=== PATIENT | female | born 1955 | race Caucasian/White ===

== ENCOUNTER 2016-11-25 17:23 | Emergency (ER) | payer OTHER ==
--- NOTE | 2016-11-25 20:11 | ERRECORD ---
[facility] EMERGENCY RECORD HPI SORE THROAT (18:17 DHAM) CHIEF COMPLAINT: Patient presents for evaluation of sore throat. HISTORIAN: History provided by patient, Pt c/o 2 months of bilat ear pain, headache for 2 months, choking on her food for 2-3 weeks. 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 LOCATION: throat pain is diffuse when she swallows. QUALITY: Unable to describe the quality of the pain. SEVERITY: Current severity of pain rated as 5/10. TIME COURSE: Gradual onset of symptoms, 3, weeks ago, There has been no change in the patient's symptoms over time, are intermittent. ASSOCIATED WITH: No associated fever, No associated chills, Associated with cough, non-productive, intermittent, Associated with dysphagia, for 1 month, intermittent, Associated with headache, for 3 months, No associated inability to open mouth, No associated inability to take oral fluids, No associated nasal discharge, No associated shortness of breath, No associated upper respiratory infection, No associated vomiting. EXACERBATED BY: Patient's condition exacerbated by food. RELIEVED BY: Patient's condition relieved by nothing. ROS (18:23 DHAM) CONSTITUTIONAL: Historian denies chills, denies fever, denies lethargy, denies night sweats. EYES: Historian denies eye pain, denies eye redness, denies eye discharge. ENT: Historian reports dysphagia, reports otalgia, denies otorrhea, denies rhinorrhea, denies sinus pain, reports sore throat, denies stridor. hoarse voice for "a long time when I talk a lot". CARDIOVASCULAR: Historian denies chest pain, denies diaphoresis, denies edema, denies syncope, denies palpitations. RESPIRATORY: Historian reports cough, denies shortness of breath, denies sputum. GI: Historian denies abdominal pain, denies constipation, denies diarrhea, denies nausea, denies vomiting. GENITOURINARY FEMALE: Historian denies dysuria, denies urgency. MUSCULOSKELETAL: Historian denies arthralgias, denies back pain, denies fall, denies injury. SKIN: Historian denies pruritis, denies rash, denies skin changes. NEUROLOGIC: Historian denies confusion, denies dizziness, denies dysphasia, denies focal weakness, reports headache, denies mental status changes, denies paresthesias. HEMO/LYMPHATIC: Historian denies abnormal blood clotting, denies easy bruising. ALLERGIC/IMMUNOLOGIC: Historian denies frequent infections, denies hives. &a-1R&a+25V*p+0X*v4632K*c202B*c15G*c2P*p-0X&a-25V&a+1R Name: Radha Navarrete : 1955 F61 MedRec: [id number] AcctNum: [id number] Prepared: Sat Nov 26, 2016 03:03 by Interface Page 1 of 4 pMD [facility] EMERGENCY RECORD PSYCHIATRIC: bipolar d/o. PAST MEDICAL HISTORY MEDICAL HISTORY: Notes: BORDER LINE DIABETIC, Past medical history includes history of hypertension, which has been treated, Flu vaccine up to date, Tetanus immunization up to date, Pneumococcal vaccine up to date, Past medical history includes pulmonary disease, chronic obstructive pulmonary disease, 19-16. (MonNov 25, 2016 17:37 SCHI) FEMALE SURGICAL HISTORY: VERIFIED 02-22-16, Surgical history of tubal ligation, Surgical history of oophorectomy, Notes: 1 ovary + 1 fallopian tube removed +surgery to have children, Surgical history of tubal ligation.16. (MonNov 25, 2016 17:37 SCHI) PSYCHIATRIC HISTORY: Notes: BIPOLAR, Psychiatric history includes, bipolar disorder. -19-16. (MonNov 25, 2016 17:37 SCHI) SOCIAL HISTORY: Social History includes [id number] 02-22-16, Patient denies alcohol use, Patient denies drug use, Patient currently uses tobacco, smokes cigarettes, daily, Patient has smoked for 30 years, Patient smokes 1 pack per day, Lives at home, with family, Patient drinks socially, once a month, Patient denies drug use, Patient currently uses tobacco, smokes cigarettes, Patient smokes 1.5 packs per day, Patient drinks socially, Alcohol history notes: PT STATES SOCIALLY - EVERY ONCE AND AWHILE - BUT HAS HISTORY OF ETOH, Patient denies drug use, Patient currently uses tobacco, smokes cigarettes. (MonNov 25, 2016 17:37 SCHI) FAMILY HISTORY: Paternal history of cardiac disease:, coronary artery disease. (MonNov 25, 2016 17:37 SCHI) NOTES: HAVE EXAMINED AND AGREE WITH PMHX, SOCIAL HX AND PAST FAMILY HX as noted in nursing docuentation. (18:23 [facility]) KNOWN ALLERGIES Geodon: - Entered brand: Geodon Cap -- Entered brand: Geodon Cap Haldol CURRENT MEDICATIONS (17:38 SCHI) gabapentin: CAPSULE : Strength - 300 mg : ORAL Patient Dose: 1 cap(s) Oral 3 times a day. Elavil: TABLET : Strength - 100 mg : ORAL Patient Dose: once a day (at bedtime). traZODone: TABLET : Strength - 300 mg : ORAL Patient Dose: once a day (at bedtime). SEROquel: TABLET : Strength - 400 mg : ORAL Patient Dose: once a day (at bedtime). KlonoPIN: TABLET : Strength - 1 mg : ORAL &a-1R&a+25V*p+0X*v3086J*c202B*c15G*c2P*p-0X&a-25V&a+1R Name: Radha Navarrete : 1955 F61 MedRec: [id number] AcctNum: [id number] Prepared: Sat Nov 26, 2016 03:03 by Interface Page 2 of 4 pMD [facility] EMERGENCY RECORD Patient Dose: once a day (at bedtime). propranolol: TABLET : Strength - 10 mg : ORAL Patient Dose: Unknown. NOT SURE OF DOSAGE . melatonin: TABLET : Strength - 10 mg : ORAL Patient Dose: once a day. Ditropan: TABLET : Strength - 5 mg : ORAL Patient Dose: 10 mg once a day. atorvastatin: TABLET : Strength - 20 mg : ORAL Patient Dose: once a day. lisinopril: TABLET : Strength - 10 mg : ORAL Patient Dose: once a day. VITAL SIGNS VITAL SIGNS: BP: 128/59, Pulse: 104, Resp: 20, Temp: 99 (Tympanic), O2 sat: 95 on Room Air, Time: 11/25/2016 17:34. (17:34 SCHI) BP: 134/76, Pulse: 101, Resp: 20, Temp: 98.1, Pain: 7, O2 sat: 96 on RA, Time: 11/25/2016 19:53. (19:53 EROG) PHYSICAL EXAM (Sat Nov 26, 2016 03:00 DHAM) CONSTITUTIONAL: Vital signs reviewed, Patient afebrile, Pulse normal, Blood pressure normal, Respiratory rate normal, Patient appears non toxic, Patient appears pain free, Patient alert and oriented to person, place and time. HEAD: Head exam normal, Head exam included findings of head atraumatic, normocephalic. EYES: Eye exam included findings of eyelids normal to inspection, Pupils equally round and reactive to light, Extraocular muscles intact, Conjunctiva normal, Sclera normal. ENT: Ear exam normal, Nose exam normal, Pharynx exam normal, Uvula exam normal, Tonsil exam normal, Mouth exam normal, mucous membranes moist. voice is a bit hoarse. NECK: Neck exam normal, Neck exam included findings of normal range of motion, Trachea midline, no meningeal signs, no jugular venous distention, no cervical adenopathy. RESPIRATORY CHEST: Respiratory and chest exam normal, Respiratory exam included findings of no respiratory distress, Breath sounds clear, No wheezing, No rales, Breath sounds not diminished. CARDIOVASCULAR: Cardiovascular exam included findings of heart rate regular rate and rhythm, Heart sounds normal, normal S1, normal S2, no murmurs, Pedal pulses normal. ABDOMEN FEMALE: Abdominal exam normal, Abdominal exam included findings of abdomen nontender, Bowel sounds normal, Liver normal, Spleen normal, no distension, no mass, no peritoneal signs, no rigidity, no guarding, no rebound. &a-1R&a+25V*p+0X*h3537H*c202B*c15G*c2P*p-0X&a-25V&a+1R Name: Radha Navarrete : 1955 F61 MedRec: [id number] AcctNum: [id number] Prepared: Sat Nov 26, 2016 03:03 by Interface Page 3 of 4 pMD [facility] EMERGENCY RECORD BACK: Back exam normal, Back exam included findings of normal inspection, range of motion normal, no tenderness. UPPER EXTREMITY: Upper extremity exam normal, Upper extremity exam included findings of inspection normal, Range of motion normal, Motor strength normal, Sensation intact. LOWER EXTREMITY: Lower extremity exam normal, Lower extremity exam included findings of inspection normal, Range of motion normal, Motor strength normal, Sensation intact, Pedal pulse normal. NEURO: Elkin coma scale 15, Neuro exam findings include patient oriented to person, place and time, Speech normal, Gait normal, Cranial nerves intact, Deep tendon reflexes normal, no focal motor deficits, no focal sensory deficits, no cerebellar deficits. SKIN: Skin exam normal, Skin exam included findings of skin warm, dry, and normal in color, no rash. LYMPHATIC: Lymphatic exam normal, Lymphatic exam included findings of cervical nodes normal. PSYCHIATRIC: Psychiatric exam included findings of patient oriented to person place and time, Normal affect, Judgment normal, Insight normal, Remote memory normal, Recent memory normal, Concentration normal, hx seems variable and somewhat difficult to follow. PROBLEM LIST No recorded problems DIAGNOSIS (19:43 [facility]) FINAL: PRIMARY: ACUTE PHARYNGITIS UNSPECIFIED. PRESCRIPTION No recorded prescriptions DISPOSITION PATIENT: Disposition Type: Discharge, Disposition: *Discharge Home. (19:43 DHAM) Patient left the department. (20:02 EROG) Christiansen: HAKEEM=MD Hiral, Elmer EROG=VIVIANA Mayfield, Santino RODRÍGUEZ=VIVIANA Garcia, nayana &a-1R&a+25V*p+0X*f8852E*c202B*c15G*c2P*p-0X&a-25V&a+1R Name: Radha Navarrete : 1955 F61 MedRec: [id number] AcctNum: [id number] Prepared: Albert Nov 26, 2016 03:03 by Interface Page 4 of 4 pMD MTDD
--- NOTE | 2016-11-25 20:19 | PICIS ---
[facility] EMERGENCY RECORD TRIAGE (MonNov 25, 2016 17:37 SCHI) PATIENT: NAME: Radha Navarrete, AGE: 61, GENDER: female, : Mon1955, TIME OF GREET: MonNov 25, 2016 17:25, PREFERRED LANGUAGE: Montenegrin, RACE: WHITE, ETHNICITY: Not or , FALL RISK: NO, ECODE BILLING MAP: [facility] ER, SSN: [id number], Zip Code: [address], KG WEIGHT: 97.52, PHONE: , , , PERSON ID: [id number], PCP: MD Rose Grover. (MonNov 25, 2016 17:37 SCHI) TRIAGE NOTES: HEADACHE,EARS HURTING AND SOME TROUBLE SWOLLOWING MEATS FOR SEVERAL WEEKS NOW, CALLED ASK A NURSE AND WAS TOLD TO COME TO ER TODAY. (MonNov 25, 2016 17:37 SCHI) COMPLAINT: THROAT PROBLEM/TROUBLE SWALLOWING. (MonNov 25, 2016 17:37 SCHI) ADMISSION: URGENCY: 4 Non Urgent, ADMISSION SOURCE: Home, TRANSPORT: Walk-in, BED: ED -04. (MonNov 25, 2016 17:37 SCHI) ASSESSMENT: Assessment: ALERT AND ORIENTED X 4, SKIN WARM AND DRY RESP EVEN AND UNLABORED,, Symptoms began SEVERAL MONTHS. (MonNov 25, 2016 17:37 SCHI) IMMUNIZATIONS: Flu vaccine up to date. (MonNov 25, 2016 17:37 SCHI) TRIAGE SCREENING: Patient denies suicidal ideation, Patient denies presence of domestic violence. (MonNov 25, 2016 17:37 SCHI) PROVIDERS: TRIAGE NURSE: Tonie Garcia RN. (MonNov 25, 2016 17:37 SCHI) VITAL SIGNS: BP 128/59, Pulse 104, Resp 20, Temp 99, (Tympanic), O2 Sat 95, on Room Air, Time 11/25/2016 17:34. (17:34 SCHI) PREVIOUS VISIT ALLERGIES: Geodon, Haldol. (MonNov 25, 2016 17:37 SCHI) KNOWN ALLERGIES Geodon: - Entered brand: Geodon Cap -- Entered brand: Geodon Cap Haldol CURRENT MEDICATIONS (17:38 SCHI) gabapentin: CAPSULE : Strength - 300 mg : ORAL Patient Dose: 1 cap(s) Oral 3 times a day. Elavil: TABLET : Strength - 100 mg : ORAL Patient Dose: once a day (at bedtime). traZODone: TABLET : Strength - 300 mg : ORAL Patient Dose: once a day (at bedtime). SEROquel: TABLET : Strength - 400 mg : ORAL Patient Dose: once a day (at bedtime). KlonoPIN: TABLET : Strength - 1 mg : ORAL Patient Dose: once a day (at bedtime). &a-1R&a+25V*p+0X*p1168L*c202B*c15G*c2P*p-0X&a-25V&a+1R Name: Radha Navarrete : 1955 F61 MedRec: [id number] AcctNum: [id number] Prepared: Sat Nov 26, 2016 03:10 by Interface Page 1 of 6 pMD [facility] EMERGENCY RECORD propranolol: TABLET : Strength - 10 mg : ORAL Patient Dose: Unknown. NOT SURE OF DOSAGE . melatonin: TABLET : Strength - 10 mg : ORAL Patient Dose: once a day. Ditropan: TABLET : Strength - 5 mg : ORAL Patient Dose: 10 mg once a day. atorvastatin: TABLET : Strength - 20 mg : ORAL Patient Dose: once a day. lisinopril: TABLET : Strength - 10 mg : ORAL Patient Dose: once a day. VITAL SIGNS VITAL SIGNS: BP: 128/59, Pulse: 104, Resp: 20, Temp: 99 (Tympanic), O2 sat: 95 on Room Air, Time: 11/25/2016 17:34. (17:34 SCHI) BP: 134/76, Pulse: 101, Resp: 20, Temp: 98.1, Pain: 7, O2 sat: 96 on RA, Time: 11/25/2016 19:53. (19:53 EROG) NURSING PROCEDURE: DISCHARGE NOTE (19:53 EROG) DISCHARGE: Patient discharged to home, ambulating without assistance, driving self, unaccompanied, Summary of Care printed/ provided, Patient requested and was provided an electronic copy of Discharge Instructions, Transition record given to patient, Discharge instructions given to patient, Simple or moderate discharge teaching performed, by Jayant LANIER RN, Above person(s) verbalized understanding of discharge instructions and follow-up care. BELONGINGS: Belongings remain with patient, Valuables remain with patient, Notes: PATIENT REMAINS STABLE. INSTRUCTED TO CALL DR. ROSE ON MONDAY MORNING FOR FOLLOW UP. VITAL SIGNS: BP: 134, / 76, Pulse: 101, Resp: 20, Temp: 98.1, Pain: 7, O2 sat: 96, on: RA, Time: 1949. ORDER DETAILS Order Name: Strep Group A Screen, Status: Active, Time: 18:17 11/25/2016, User: HAKEEM, - Ordered for: MD Blackman Darren, - Entered by: MD Blackman Darren - MonNov 25, 2016 18:17, - Quantity: 1. HPI SORE THROAT (18:17 [facility]) CHIEF COMPLAINT: Patient presents for evaluation of sore throat. HISTORIAN: History provided by patient, Pt c/o 2 months of bilat ear pain, headache for 2 months, choking on her food for 2-3 weeks. she has a chronically hoarse voice &a-1R&a+25V*p+0X*w3043I*c202B*c15G*c2P*p-0X&a-25V&a+1R Name: Radha Navarrete : 1955 F61 MedRec: [id number] AcctNum: [id number] Prepared: Sat Nov 26, 2016 03:10 by Interface Page 2 of 6 pMD [facility] EMERGENCY RECORD and is a termite control service representative smoker. LOCATION: throat pain is diffuse when she swallows. QUALITY: Unable to describe the quality of the pain. SEVERITY: Current severity of pain rated as 5/10. TIME COURSE: Gradual onset of symptoms, 3, weeks ago, There has been no change in the patient's symptoms over time, are intermittent. ASSOCIATED WITH: No associated fever, No associated chills, Associated with cough, non-productive, intermittent, Associated with dysphagia, for 1 month, intermittent, Associated with headache, for 3 months, No associated inability to open mouth, No associated inability to take oral fluids, No associated nasal discharge, No associated shortness of breath, No associated upper respiratory infection, No associated vomiting. EXACERBATED BY: Patient's condition exacerbated by food. RELIEVED BY: Patient's condition relieved by nothing. ROS (18:23 DHAM) CONSTITUTIONAL: Historian denies chills, denies fever, denies lethargy, denies night sweats. EYES: Historian denies eye pain, denies eye redness, denies eye discharge. ENT: Historian reports dysphagia, reports otalgia, denies otorrhea, denies rhinorrhea, denies sinus pain, reports sore throat, denies stridor. hoarse voice for "a long time when I talk a lot". CARDIOVASCULAR: Historian denies chest pain, denies diaphoresis, denies edema, denies syncope, denies palpitations. RESPIRATORY: Historian reports cough, denies shortness of breath, denies sputum. GI: Historian denies abdominal pain, denies constipation, denies diarrhea, denies nausea, denies vomiting. GENITOURINARY FEMALE: Historian denies dysuria, denies urgency. MUSCULOSKELETAL: Historian denies arthralgias, denies back pain, denies fall, denies injury. SKIN: Historian denies pruritis, denies rash, denies skin changes. NEUROLOGIC: Historian denies confusion, denies dizziness, denies dysphasia, denies focal weakness, reports headache, denies mental status changes, denies paresthesias. HEMO/LYMPHATIC: Historian denies abnormal blood clotting, denies easy bruising. ALLERGIC/IMMUNOLOGIC: Historian denies frequent infections, denies hives. PSYCHIATRIC: bipolar d/o. PAST MEDICAL HISTORY MEDICAL HISTORY: Notes: BORDER LINE DIABETIC, Past medical history includes history of hypertension, which has been treated, Flu &a-1R&a+25V*p+0X*z2087J*c202B*c15G*c2P*p-0X&a-25V&a+1R Name: Radha Navarrete : 1955 F61 MedRec: [id number] AcctNum: [id number] Prepared: Sat Nov 26, 2016 03:10 by Interface Page 3 of 6 pMD [facility] EMERGENCY RECORD vaccine up to date, Tetanus immunization up to date, Pneumococcal vaccine up to date, Past medical history includes pulmonary disease, chronic obstructive pulmonary disease, 2-19-16. (MonNov 25, 2016 17:37 SCHI) FEMALE SURGICAL HISTORY: VERIFIED 02-22-16, Surgical history of tubal ligation, Surgical history of oophorectomy, Notes: 1 ovary + 1 fallopian tube removed +surgery to have children, Surgical history of tubal ligation.12-18-15. (MonNov 25, 2016 17:37 SCHI) PSYCHIATRIC HISTORY: Notes: BIPOLAR, Psychiatric history includes, bipolar disorder. 12-18-15. (MonNov 25, 2016 17:37 SCHI) SOCIAL HISTORY: Social History includes NYAVV4OG 02-22-16, Patient denies alcohol use, Patient denies drug use, Patient currently uses tobacco, smokes cigarettes, daily, Patient has smoked for 30 years, Patient smokes 1 pack per day, Lives at home, with family, Patient drinks socially, once a month, Patient denies drug use, Patient currently uses tobacco, smokes cigarettes, Patient smokes 1.5 packs per day, Patient drinks socially, Alcohol history notes: PT STATES SOCIALLY - EVERY ONCE AND AWHILE - BUT HAS HISTORY OF ETOH, Patient denies drug use, Patient currently uses tobacco, smokes cigarettes. (MonNov 25, 2016 17:37 SCHI) FAMILY HISTORY: Paternal history of cardiac disease:, coronary artery disease. (MonNov 25, 2016 17:37 SCHI) NOTES: HAVE EXAMINED AND AGREE WITH PMHX, SOCIAL HX AND PAST FAMILY HX as noted in nursing docuentation. (18:23 DHAM) PHYSICAL EXAM ([facility] Nov 26, 2016 03:00 DHAM) CONSTITUTIONAL: Vital signs reviewed, Patient afebrile, Pulse normal, Blood pressure normal, Respiratory rate normal, Patient appears non toxic, Patient appears pain free, Patient alert and oriented to person, place and time. HEAD: Head exam normal, Head exam included findings of head atraumatic, normocephalic. EYES: Eye exam included findings of eyelids normal to inspection, Pupils equally round and reactive to light, Extraocular muscles intact, Conjunctiva normal, Sclera normal. ENT: Ear exam normal, Nose exam normal, Pharynx exam normal, Uvula exam normal, Tonsil exam normal, Mouth exam normal, mucous membranes moist. voice is a bit hoarse. NECK: Neck exam normal, Neck exam included findings of normal range of motion, Trachea midline, no meningeal signs, no jugular venous distention, no cervical adenopathy. RESPIRATORY CHEST: Respiratory and chest exam normal, Respiratory exam included findings of no respiratory distress, Breath sounds clear, No wheezing, No rales, Breath sounds not diminished. CARDIOVASCULAR: Cardiovascular exam included findings of heart rate regular rate and rhythm, Heart sounds normal, normal S1, normal S2, no murmurs, Pedal pulses normal. ABDOMEN FEMALE: Abdominal exam normal, Abdominal exam included findings of abdomen nontender, Bowel sounds normal, Liver normal, &a-1R&a+25V*p+0X*f2044O*c202B*c15G*c2P*p-0X&a-25V&a+1R Name: Radha Navarrete : 1955 F61 MedRec: [id number] AcctNum: [id number] Prepared: Sat Nov 26, 2016 03:10 by Interface Page 4 of 6 pMD [facility] EMERGENCY RECORD Spleen normal, no distension, no mass, no peritoneal signs, no rigidity, no guarding, no rebound. BACK: Back exam normal, Back exam included findings of normal inspection, range of motion normal, no tenderness. UPPER EXTREMITY: Upper extremity exam normal, Upper extremity exam included findings of inspection normal, Range of motion normal, Motor strength normal, Sensation intact. LOWER EXTREMITY: Lower extremity exam normal, Lower extremity exam included findings of inspection normal, Range of motion normal, Motor strength normal, Sensation intact, Pedal pulse normal. NEURO: Elkin coma scale 15, Neuro exam findings include patient oriented to person, place and time, Speech normal, Gait normal, Cranial nerves intact, Deep tendon reflexes normal, no focal motor deficits, no focal sensory deficits, no cerebellar deficits. SKIN: Skin exam normal, Skin exam included findings of skin warm, dry, and normal in color, no rash. LYMPHATIC: Lymphatic exam normal, Lymphatic exam included findings of cervical nodes normal. PSYCHIATRIC: Psychiatric exam included findings of patient oriented to person place and time, Normal affect, Judgment normal, Insight normal, Remote memory normal, Recent memory normal, Concentration normal, hx seems variable and somewhat difficult to follow. EVENTS TRANSFER: Triage to Emergency Main ED -04. (MonNov 25, 2016 17:37 SCHI) Removed from Emergency Main ED -04. (20:02 EROG) O2SAT INTERPRETATION (18:25 DHAM) O2SAT: Single pulse oximetry, Oxygen saturation 95%, on room air, Oxygen saturation interpretation: Normal, No intervention required. PROBLEM LIST No recorded problems DIAGNOSIS (19:43 DHAM) FINAL: PRIMARY: ACUTE PHARYNGITIS UNSPECIFIED. DISPOSITION PATIENT: Disposition Type: Discharge, Disposition: *Discharge Home. (19:43 DHAM) Patient left the department. (20:02 EROG) INSTRUCTION (19:44 DHAM) DISCHARGE: PHARYNGITIS, VIRAL. FOLLOWUP: MD Saniya, Sil[facility], [facility], [address] [place] [address], . SPECIAL: I would encourage you to see your pcp to consider ENT referral for your sore throat and hoarseness. &a-1R&a+25V*p+0X*t0579O*c202B*c15G*c2P*p-0X&a-25V&a+1R Name: Radha Navarrete : 1955 F61 MedRec: [id number] AcctNum: [id number] Prepared: Sat Nov 26, 2016 03:10 by Interface Page 5 of 6 pMD [facility] EMERGENCY RECORD Please return for any worsening or other concerns. PRESCRIPTION No recorded prescriptions IMAGING (20:25 EROG) *DISCHARGE INSTRUCTIONS RECEIPT: Image captured from scanner. *SUPPLY CHARGE SHEET: Image captured from scanner. ADMIN DIGITAL SIGNATURE: VIVIANA Lanier Eugene. (20:29 EROG) MD Blackman Darren. (Sat Nov 26, 2016 03:01 [facility]) RESULTS (19:42 [facility]) MICROBIOLOGY: Strep Group A Screen: [id number] Collection DT: MonNov 25, 2016 18:37, See comment below , @ ER ROOM#: ED-04 Source: Throat Spec Desc: PENDING, Strep A Negative CDC recommends , confirmation by , culture on all , negative , Strep negative line 1 Group A , Streptococcus rapid , screens. Please , order , Strep negative line 2 a throat culture if , clinically , indicated. , Rapid Strep Screen:Throat Negative . Christiansen: HAKEEM=MD Blackman Darren EROG=VIVIANA Lanier Eugene SCHI=VIVIANA Garcia, inda &a-1R&a+25V*p+0X*p3215G*c202B*c15G*c2P*p-0X&a-25V&a+1R Name: Radha Navarrete : 1955 F61 MedRec: [id number] AcctNum: [id number] Prepared: Albert Nov 26, 2016 03:10 by Interface Page 6 of 6 pMD MTDD
== END 2016-11-25 19:53 | disposition home or self-care (01) ==
LOC: MADERS 17:23
DX: J02.9 Acute pharyngitis, unspecified (principal); J44.9 Chronic obstructive pulmonary disease, unspecified; I10 Essential (primary) hypertension; F17.210 Nicotine dependence, cigarettes, uncomplicated; F31.9 Bipolar disorder, unspecified; Z79.899 Other long term (current) drug therapy
CPT/HCPCS: 87430; 99284

== ENCOUNTER 2016-11-29 11:34 | Outpatient (CLI) | payer OTHER ==
--- NOTE | 2016-11-29 15:06 | RAD ---
TWO VIEWS CHEST INDICATION: COPD. COMPARISON: 02/22/2016. FINDINGS: There is a linear density along the lateral aspect of the mid inferior right chest, likely a Mach li ne, as there are pulmonary parenchymal markings traversing lateral to this finding. There is no con solidation. No evidence of significant effusion. Elevation of the left hemidiaphragm with associat ed air fluid level within the stomach present. A component of diaphragmatic hernia not entirely exc luded. Cardiac silhouette is stable. IMPRESSION: Mach line of the right chest. Stable elevation of the left hemidiaphragm with underlying air fluid level. POS: [facility]
== END 2016-11-29 11:35 | disposition home or self-care (01) ==
LOC: MADRAD 11:34
PROVIDERS: ATTEND Family Medicine
DX: J44.9 Chronic obstructive pulmonary disease, unspecified (principal)
CPT/HCPCS: 71020

== ENCOUNTER 2017-05-11 08:24 | Outpatient (CLI) | payer OTHER ==
[2017-05-11 09:53] LABS: #Basophils 0.1 thou/uL (0.0-0.2); #Eosinphils 0.7 thou/uL (0.0-0.7); #Lymphocytes 3.1 thou/uL (1.20-3.40); #Monocytes 0.5 thou/uL (0.11-0.59); #Neutrophils 5.5 thou/uL (1.40-6.50); %Basophils 1.4 % (0.0-1.0); %Eosinophils 7.3 % (0.0-10.0); %Monocytes 5.2 % (0.0-10.0); %Neutrophils 55.2 % (42.0-75.0); Hemoglobin 14.3 g/dL (12.0-16.0); Mean Corpuscular Hemoglobin 32.7 pg (27.0-31.0); Mean Corpuscular Volume 99.1 fl (81.0-99.0); Mean Platelet Volume 5.9 fL (7.4-10.4); Platelet Count 272 thou/uL (130-400); RBC Distribution Width 12.1 % (11.5-14.5); Red Blood Cell (RBC) Count 4.38 mill/uL (4.20-5.40); White Blood Cell (WBC) Count 9.9 thou/uL (4.8-10.8)
[2017-05-11 10:08] LABS: ALT (SGPT) 21 U/L (8-55); AST (SGOT) 16 U/L (5-34); Alkaline Phosphatase 111 U/L (40-150); Anion Gap 13 mmol/L (10-20); BUN (Urea Nitrogen) 15 mg/dL (9.8-20.1); Bilirubin, Total Less than 0.3 mg/dL (0.2-1.2); Calc. Creatinine Clearance 0 mL/min (70-130); Calcium 9.8 mg/dL (7.8-10.44); Carbon Dioxide 27 mmol/L (22-29); Cardiac Risk 3.8 (Less than 4.5); Chloride 100 mmol/L (98-107); Cholesterol 180 mg/dl (< 200 Desired); Estimated GFR-MDRD 67; Globulin 3.4 g/dL (2.4-3.5); Glucose 106 mg/dL (70-105); HDL Cholesterol 48 mg/dL (>60 Neg Risk); LDL Cholesterol, Calculated 108 mg/dL; Potassium 4.4 mmol/L (3.5-5.1); Protein, Total 7.4 g/dL (6.0-8.3); Sodium 136 mmol/L (136-145); Triglycerides 118 mg/dL (Less than 150)
[2017-05-11 10:09] LABS: Hemoglobin A1c 5.9 % (4.0-6.0)
[2017-05-11 10:54] LABS: Bilirubin Negative (Negative); Blood, Urine Negative (Negative); Clarity Clear (Clear); Glucose, Urine (Dipstick) Negative (Negative); Leukocyte Negative (Negative); Nitrite Negative (Negative); Protein, Urine (Dipstick) Negative (Neg-Trace); Urobilinogen 0.2 mg/dL (0.2-1.0)
[2017-05-11 10:56] LABS: Bacteria/HPF Rare-Few HPF (None Seen); RBC/HPF 0-3 HPF (0-3); WBC/HPF 0-3 HPF (0-3)
[2017-05-11 18:31] LABS: Creatinine, Urine 55.05 mg/dL (47-110); Microalbumin Urine Less than 1.0 mg/dL (0.5-50.0); Microalbumin/Creat Ratio 18.2 mg/g (Less than 30)
== END 2017-05-11 08:25 | disposition home or self-care (01) ==
LOC: MADLABBHPM 08:24
PROVIDERS: ATTEND Family Medicine
DX: E78.5 Hyperlipidemia, unspecified (principal); E11.9 Type 2 diabetes mellitus without complications; F41.1 Generalized anxiety disorder
CPT/HCPCS: 36415; 80053; 80061; 81001; 82043; 83036; 84443; 85025

== ENCOUNTER 2017-05-18 14:00 | Outpatient (CLI) | payer OTHER | END 2017-05-18 14:01 | disposition home or self-care (01) | LOC: MADLABBHPM 14:00 | PROVIDERS: ATTEND Family Medicine | DX: Z01.419 Encounter for gynecological examination (general) (routine) without abnormal findings (principal) | CPT/HCPCS: 88142; G0123 ==

== ENCOUNTER 2017-10-11 11:37 | Outpatient (CLI) | payer OTHER ==
--- NOTE | 2017-10-11 13:27 | ULT ---
RENAL ULTRASOUND: Indication: History of chronic kidney disease, stage 3. FINDINGS: The right kidney measures 9.6 x 4.6 x 5.3 cm. The right renal cortical thickness measured 1.9 cm. Left kidney measured 9.7 x 4.8 x 6.4 cm. The left renal cortical thickness measured 1.8 cm. The pre void bladder volume was 86 cc and the post void bladder was 30 cc. IMPRESSION: No focal renal lesion or hydronephrosis. POS: [facility]
== END 2017-10-11 11:38 | disposition home or self-care (01) ==
LOC: MADULT 11:37
PROVIDERS: ATTEND Internal Medicine Nephrology
DX: N18.3 Chronic kidney disease, stage 3 (moderate) (principal)
CPT/HCPCS: 76770

== ENCOUNTER 2017-12-24 07:15 | Emergency (ER) | payer OTHER ==
[2017-12-24 08:28] LABS: #Eosinphils 0.8 thou/uL (0.0-0.7); #Lymphocytes 2.2 thou/uL (1.20-3.40); #Monocytes 0.5 thou/uL (0.11-0.59); #Neutrophils 4.6 thou/uL (1.40-6.50); %Basophils 0.6 % (0.0-1.0); %Eosinophils 10.1 % (0.0-10.0); %Lymphocytes 26.8 % (21.0-51.0); %Monocytes 5.9 % (0.0-10.0); %Neutrophils 56.6 % (42.0-75.0); Hemoglobin 12.9 g/dL (12.0-16.0); Mean Corpuscular HGB CONC 33.8 g/dL (32.0-36.0); Mean Corpuscular Hemoglobin 33.2 pg (27.0-31.0); Mean Corpuscular Volume 98.1 fl (81.0-99.0); Mean Platelet Volume 5.9 fL (7.4-10.4); Platelet Count 270 thou/uL (130-400); RBC Distribution Width 12.2 % (11.5-14.5); Red Blood Cell (RBC) Count 3.89 mill/uL (4.20-5.40); White Blood Cell (WBC) Count 8.1 thou/uL (4.8-10.8)
[2017-12-24 08:43] LABS: ALT (SGPT) 30 U/L (8-55); AST (SGOT) 22 U/L (5-34); Albumin 3.9 g/dL (3.4-4.8); Alkaline Phosphatase 112 U/L (40-150); Anion Gap 15 mmol/L (10-20); BUN (Urea Nitrogen) 12 mg/dL (9.8-20.1); Bilirubin, Total 0.4 mg/dL (0.2-1.2); Calc. Creatinine Clearance 0 mL/min (70-130); Calcium 9.4 mg/dL (7.8-10.44); Carbon Dioxide 24 mmol/L (23-31); Chloride 103 mmol/L (98-107); Estimated GFR-MDRD 70; Globulin 3.1 g/dL (2.4-3.5); Glucose 129 mg/dL (80-115); Magnesium 1.8 mg/dL (1.6-2.6); Potassium 3.9 mmol/L (3.5-5.1); Sodium 138 mmol/L (136-145)
[2017-12-24 08:44] LABS: CKMB 0.4 ng/mL (0-6.6); Troponin I Less than 0.010 ng/mL (< 0.028)
== END 2017-12-24 09:05 | disposition home or self-care (01) ==
LOC: MADERS 07:15
DX: R42 Dizziness and giddiness (principal); T43.215A Adverse effect of selective serotonin and norepinephrine reuptake inhibitors, initial encounter; T44.7X5A Adverse effect of beta-adrenoreceptor antagonists, initial encounter; T40.4X5A Adverse effect of other synthetic narcotics, initial encounter; J44.9 Chronic obstructive pulmonary disease, unspecified; F31.9 Bipolar disorder, unspecified; F17.210 Nicotine dependence, cigarettes, uncomplicated; Z79.899 Other long term (current) drug therapy
CPT/HCPCS: 36415; 80053; 82553; 83735; 84484; 85025; 93005